=== PATIENT | male | born 1945 | race Caucasian/White ===

== ENCOUNTER 2020-12-11 12:26 | Outpatient (CLI) | payer MEDICARE ==
[2020-12-11] MEDS ORDERED: GADOTERATE 10 MMOL/20ML SYR ONE (13:22)
== END 2020-12-11 23:59 | disposition home or self-care (01) ==
LOC: RAD 12:26
PROVIDERS: ATTEND Psychiatry & Neurology Neurology
DX: G93.0 Cerebral cysts (principal); G40.409 Other generalized epilepsy and epileptic syndromes, not intractable, without status epilepticus; G31.9 Degenerative disease of nervous system, unspecified
CPT/HCPCS: 70553; A9575